=== PATIENT | female | born 1975 | race American Indian/Alaskan Native ===

== ENCOUNTER 2020-04-03 11:14 | Emergency (ER) | payer OTHER ==
--- NOTE | 2020-04-03 12:12 | EDM.PDOC ---
ED HPI GENERAL MEDICAL PROBLEM - General Chief Complaint: Lower Extremity Injury/Pain Time Seen by Provider: 04/03/20 11:19 Source of Information: Reports: Patient History Limitations: Reports: No Limitations - History of Present Illness INITIAL COMMENTS - FREE TEXT/NARRATIVE: Presents reporting a 2-month history of left alford wound. Patient states that approximately 2 months ago she fell on her patio and struck her left alford on a board. She sustained an abrasion. She never sought medical care. In the ensuing days it hurt but gradually the wound scabbed over but never really healed completely. Last week, she went to the swimming pool and since that time the wound has become more painful, it is red around it and her lower leg ankle and foot are swollen. Now, beside the swelling she has pain shooting up the leg into the groin. No fever or constitutional symptoms. 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 left leg Pain Score (Numeric/FACES): 6 - Related Data Allergies Allergy/AdvReac Type Severity Reaction Status Date / Time No Known Allergies Allergy Verified 04/03/20 11:38 Home Meds: Home Meds cephALEXin [Keflex] 500 mg PO QID 7 Days #28 capsule 04/03/20 [Rx] Past Medical History Oncologic (Cancer) History: Reports: Breast - Infectious Disease History Infectious Disease History: Reports: Chicken Pox - Past Surgical History Oncologic Surgical History: Reports: Lumpectomy Social & Family History - Family History Family Medical History: Noncontributory - Tobacco Use Tobacco Use Status *Q: Current Every Day Tobacco User Years of Tobacco use: 4 Packs/Tins Daily: 1 - Recreational Drug Use Recreational Drug Use: No Review of Systems - Review of Systems Review Of Systems: Comprehensive ROS is negative, except as noted in HPI. ED EXAM, GENERAL - Physical Exam Exam: See Below Exam Limited By: No Limitations General Appearance: Alert, No Apparent Distress Ears: Normal External Exam Nose: Normal Inspection Throat/Mouth: Normal Inspection Head: Atraumatic, Normocephalic Neck: Normal Inspection Respiratory/Chest: No Respiratory Distress, Lungs Clear, Normal Breath Sounds Cardiovascular: Normal Peripheral Pulses, Regular Rate, Rhythm, Other (Left lower alford ankle and dorsal foot mildly edematous) GI/Abdominal: Soft Extremities: Normal Inspection, Other (Left alford 1.2 cm dry deep scab, erythema and tenderness 7 x 5 cm around scab) Neurological: Alert, Oriented Psychiatric: Normal Affect, Normal Mood Skin Exam: Warm, Dry, Intact, Normal Color, No Rash Lymphatic: No Adenopathy Course - Vital Signs Last Recorded V/S: Last Vital Signs Temp 36.0 C L 04/03/20 11:39 Pulse 79 04/03/20 11:39 Resp 18 04/03/20 11:39 BP Pulse Ox 96 04/03/20 11:39 Departure - Departure Time of Disposition: 13:08 Disposition: Home, Self-Care 01 Condition: Good Clinical Impression: Cellulitis Qualifiers: Site of cellulitis: extremity Site of cellulitis of extremity: lower extremity Laterality: left Qualified Code(s): L03.116 - Cellulitis of left lower limb - Discharge Information Prescriptions: cephALEXin [Keflex] 500 mg PO QID 7 Days #28 capsule Referrals: PCP,None [Primary Care Provider] - [facility] [Outside] [facility] [Outside] Forms: ED Department Discharge Additional Instructions: The following information is given to patients seen in the emergency department who are being discharged to home. This information is to outline your options for follow-up care. We provide all patients seen in our emergency department with a follow-up referral. The need for follow-up, as well as the timing and circumstances, are variable depending upon the specifics of your emergency department visit. If you don't have a primary care physician on staff, we will provide you with a referral. We always advise you to contact your personal physician following an emergency department visit to inform them of the circumstance of the visit and for follow-up with them and/or the need for any referrals to a consulting specialist. The emergency department will also refer you to a specialist when appropriate. This referral assures that you have the opportunity for follow-up care with a specialist. All of these measure are taken in an effort to provide you with optimal care, which includes your follow-up. Under all circumstances we always encourage you to contact your private physician who remains a resource for coordinating your care. When calling for follow-up care, please make the office aware that this follow-up is from your recent emergency room visit. If for any reason you are refused follow-up, please contact the [facility] Emergency Department at and asked to speak to the emergency department charge nurse. 1. Your antibiotic 4 times a day starting immediately 2. Elevated left leg/foot as much as possible 3. Watch for expanding redness, fever, elevated heart rate or difficulty with weightbearing or walking, report promptly 4. Follow up in primary care provider for worsening or non-improving Sepsis Event Note (ED) - Evaluation Sepsis Screening Result: No Definite Risk - Focused Exam Vital Signs: Vital Signs Temp Pulse Resp Pulse Ox 04/03/20 11:39 36.0 C L 79 18 96
--- NOTE | 2020-04-03 12:52 | CR ---
Indication: Pain Technique: A total of two views of the left tibia and fibula were acquired. Comparison: None Findings: Bones: Alignment is normal. No fractures or bone lesions. Joint spaces: Unremarkable. Soft tissues: Unremarkable. Impression: Normal examination. Dictated by Shai Vega MD @ Apr 03 2020 12:49PM Signed by Dr. Shai Vega @ Apr 03 2020 12:50PM
== END 2020-04-03 13:30 | disposition home or self-care (01) ==
LOC: MW.ED 11:14
DX: L03.116 Cellulitis of left lower limb (principal); F17.210 Nicotine dependence, cigarettes, uncomplicated
CPT/HCPCS: 73590-26-LT; 73590-LT; 99282; 99283-25